=== PATIENT | female | born 1950 | race Caucasian/White ===

== ENCOUNTER 2016-08-05 22:26 | Emergency (ER) | payer OTHER ==
[~2016-08-05] VITALS: Ht 167.6 cm; Wt 59.0 kg
[2016-08-05 22:35] VITALS: BP 118/50; PULSE 59; RESP 16; TEMP 97.3; O2SAT 97
--- NOTE | 2016-08-05 22:45 | NUR ---
Patient to ER bed 7 to gown for evaluation. Side rails up. Report given to Gian OSMAN.
--- NOTE | 2016-08-05 22:50 | NUR ---
Pt presents to ED with c/o rashes at bilateral legs, non-itching. Pt stated she was started on flexeril recently, and believed that the rash is from taking flexeril. A&Ox4, no sign of respiratory distress noted. Will continue to monitor
--- NOTE | 2016-08-05 23:02 | NUR ---
MD lassiter at bedside examining pt
[2016-08-05] MEDS ORDERED: methylPREDNISolone SOD SUCC/PF 62.5 MG/ML VIAL IVP ONE (23:15)
[2016-08-05] MEDS ORDERED: DIPHENHYDRAMINE INJ 50 MG/ML VIAL IM ONE (23:15)
[2016-08-05] MEDS ORDERED: methylPREDNISolone SOD SUCC/PF 62.5 MG/ML VIAL IM ONE (23:15)
[2016-08-05 23:37] VITALS: BP 116/57; PULSE 62; RESP 16; TEMP 97.3; O2SAT 98
--- NOTE | 2016-08-05 23:37 | NUR ---
Patient given written and verbal discharge instructions and verbalizes understanding. ER MD Caba discussed with patient the results and treatment provided. Patient in stable condition. ID arm band removed. Rx of benadryl given. Patient educated on pain management and to follow up with PMD. Pain Scale 0/10 Opportunity for questions provided and answered.
== END 2016-08-05 23:37 | disposition home or self-care (01) ==
LOC: SED 22:26
DX: L29.9 Pruritus, unspecified (principal); T48.1X5A Adverse effect of skeletal muscle relaxants [neuromuscular blocking agents], initial encounter; Y92.89 Other specified places as the place of occurrence of the external cause; Z90.89 Acquired absence of other organs
CPT/HCPCS: 96372; 99284; J1200; J2930